=== PATIENT | female | born 1995 | race Caucasian/White ===

== ENCOUNTER 2023-08-27 10:10 | Emergency (ER) | payer OTHER, MEDICAID, SELFPAY ==
[2023-08-27 10:36] VITALS: BP 149/71; PULSE 84; RESP 18; TEMP 36.4; O2SAT 98
--- NOTE | 2023-08-27 10:51 | ED.GENADULT ---
HPI - General Adult General Chief complaint: Unspecified Stated complaint: breast lump Time Seen by Provider: 08/27/23 10:51 Source: patient Mode of arrival: ambulatory Limitations: no limitations History of Present Illness HPI narrative: Christel is a 28-year-old female patient presenting to the ER today with complaints of right painful breast lumps.. She reports that she noticed these lumps a few days ago. Denies any fever, swelling, or drainage coming from the nipple. No family history of breast cancer. Related Data Allergies Allergy/AdvReac Type Severity Reaction Status Date / Time nickel Allergy Rash Verified 08/27/23 10:12 Review of Systems Review of Systems: Pertinent positives per HPI. Patient denies any fever, chills, rash, headache, visual changes, dizziness, cough, runny nose, sore throat, shortness of breath, chest pain, palpitations, nausea, vomiting, diarrhea, constipation, abdominal pain, or any urinary issues. [facility] Family History Family History Father Hypertension Mother Family history of mental disorder Social History Social History Smoking status: Never smoker Second hand tobacco smoke exposure: No Alcohol intake: never Comments At the time of my signature, I reviewed and agree with the nursing past medical, surgical, social, and family history. There is no relevant family history pertinent to the patient complaint. Exam Narrative: General: Well-developed, obese, in no apparent distress Head: Normocephalic, atraumatic Lymph: No palpable lymphadenopathy Chest: Normal chest wall appearance, even chest rise and fall with respirations, non-tender with palpation. Breast: Symmetric, no dimpling, 1cm mass noted at 3 o'clock near the sternum and 1cm mass palpable at 7 o'clock to the outer breast, no lesions bilaterally, mild tender to palpation over mass with bruising noted, no nipple discharge. Cardio: Regular rate and rhythm, s1 and s2 normal, no murmurs appreciated. Resp: Clear to auscultation bilaterally, no rhonchi, rales, wheezing or rubs. Extremities: No deformity, no edema, no cyanosis, capillary refill less than 2 seconds, peripheral pulses palpable and strong. Integumentary: [place], warm, and dry, intact without lesion, no rashes. Psych: Alert and oriented x 4, Depressed mood and affect, pleasant, good insight and goal oriented. Course Course Emergency Course: Portions of this record may have been created with voice recognition software. Vital Signs Vital signs: Vital Signs Temperature 36.4 C L 08/27/23 10:36 Pulse Rate 84 08/27/23 10:36 Respiratory Rate 18 08/27/23 10:36 Blood Pressure 149/71 H 08/27/23 10:36 Pulse Oximetry 98 08/27/23 10:36 Oxygen Delivery Room Air 08/27/23 10:36 Temperature 36.4 C L 08/27/23 10:36 Pulse Rate 89 08/27/23 12:28 Respiratory Rate 19 08/27/23 12:28 Blood Pressure 133/89 08/27/23 12:28 Pulse Oximetry 100 08/27/23 12:28 Oxygen Delivery Room Air 08/27/23 10:36 Vital signs reviewed Medical Decision Making MDM Narrative Medical decision making narrative: At the time of visit patient is resting comfortably on the exam table. Patient appears to be nontoxic. Attempted to order a target ultrasound however the radiologist-Dr Blake declines doing the exam and states it is an outpatient exam. I feel that patient is appropriate for treatment outpatient. Recommend follow-up with OBGYN for evaluation and orders for imaging. Supportive measures were discussed with the patient and they voiced understanding discharge instructions and agrees to treatment plan. Return precautions reviewed Differential Diagnosis Differential Diagnosis: Breast mass, breast cancer, fibrous breast tissue, cyst, adenopathy Vital Signs Vital Signs: Vital Signs Temperature 36.4 C L 08/27/23 10:36
--- NOTE | 2023-08-27 12:16 | PC.NURSE ---
RECEIVED CALL FROM US, STATED DR HOLM WILL NOT READ US TEST THAT WAS ORDERED, IT IS AN OUTPATIENT TEST NOT ER TEST.
[2023-08-27 12:28] VITALS: BP 133/89; PULSE 89; RESP 19; O2SAT 100
== END 2023-08-27 12:31 | disposition home or self-care (01) ==
PROVIDERS: Emergency Provider Nurse Practitioner Family
DX: N63.12 Unspecified lump in the right breast, upper inner quadrant (principal)
CPT/HCPCS: 99281

== ENCOUNTER 2023-09-11 12:34 | Outpatient (CLI) | payer OTHER, MEDICAID, SELFPAY ==
--- NOTE | ~2023-09-11 | US_ITS ---
EXAMINATION: US breast BI complete HISTORY: Patient presents with bruising of the right breast from 7:00 to 9:00 and palpable lumps of t he right breast at 11:00, 3:00, and 8:00 TECHNIQUE: Complete bilateral breast ultrasound is performed including all four quadrants and the sub areolar aspects of the breasts. FINDINGS: Right breast: There is a circumscribed fat lobule of the breast at the 11:00 location, 9 cm from the nipple. There is an approximately 3.2 x 1.2 cm hyperechoic mass at the 3:00 location, 9 cm from the n ipple in the right breast with indistinct margins, no posterior features, and no internal vascularity . There is heterogeneous echotexture of the right breast at the 9:00 location in the area of bruising without discrete mass identified. Left breast: No suspicious cystic or solid mass is identified in the left breast. IMPRESSION: Right breast findings at the 3:00 and 9:00 location suggestive of bruising in the breast. Recommend c ontinued clinical follow-up with repeat ultrasound if findings do not resolve clinically. BI-RADS Category 2: Benign finding(s). Reviewed, dictated and finalized at location A. ICAL THERAPY AIDE IMPRESSION: Right breast findings at the 3:00 and 9:00 location suggestive of bruising in t he breast. Recommend continued clinical follow-up with repeat ultrasound if fin dings do not resolve clinically. BI-RADS Category 2: Benign finding(s).
== END 2023-09-11 12:35 | disposition home or self-care (01) ==
LOC: ANHIMG 12:37
PROVIDERS: Visit Provider Obstetrics & Gynecology
DX: N63.31 Unspecified lump in axillary tail of the right breast (principal); R92.8 Other abnormal and inconclusive findings on diagnostic imaging of breast
CPT/HCPCS: 76641